=== PATIENT | female | born 1965 | race Caucasian/White ===

== ENCOUNTER → 2016-09-23 | Outpatient (CLI) | payer BC ==
[~2016-09-23] MED LIST: ALLEGRA180 MG PO; AMARYL4 MG PO; ASPIRIN LO-DOSE81 MG PO; CALCIUM 600 +1 EACH PO; CIPRO500 MG PO; COZAAR100 MG PO; FLOVENT 220 M220 MCG INH; GINSENG100 MG PO; GLUCOPHAGE1000 MG PO; HYZAAR 100-251 EACH PO; K-TAB ER20 MEQ PO; LASIX20 MG PO; LEVEMIR FL100 UNIT/1 SUB-Q; LIPITOR40 MG PO; MUCINEX600 MG PO; NEXIUM40 MG PO; NORCO 5-325 TA1 EACH PO; NYSTATIN100000 UNI PO; OSCAL + D500 MG PO; PROVENTIL OR V6.7 GM INH; REVLIMID10 MG PO; THERAGRAN-M1 TAB PO; TYLENOL EXTRA500 MG PO; ZYRTEC10 MG PO
== END | disposition disaster alternative care site (69) ==
LOC: GRAD 14:36
DX: R10.9 Unspecified abdominal pain (principal); K80.20 Calculus of gallbladder without cholecystitis without obstruction; D18.03 Hemangioma of intra-abdominal structures

== ENCOUNTER → 2016-09-26 | Day surgery (SDC) | payer BC ==
[~2016-09-26] VITALS: Ht 165.1 cm; Wt 75.0 kg
== END | disposition disaster alternative care site (69) ==
LOC: GPOC 09-25 16:00 → GEND 07:23 → GSIP 07:30 → GPOC 07:30 → GEND 07:30 → GOPP 07:30 → GEND 08:30 → GPOC 16:00
PROC: 0DB68ZX Excision of Stomach, Via Natural or Artificial Opening Endoscopic, Diagnostic (ICD-10-PCS; principal; 2016-09-26)
PROC: 0DB98ZX Excision of Duodenum, Via Natural or Artificial Opening Endoscopic, Diagnostic (ICD-10-PCS; 2016-09-26)
PROC: 0D758ZZ Dilation of Esophagus, Via Natural or Artificial Opening Endoscopic (ICD-10-PCS; 2016-09-26)
DX: B37.81 Candidal esophagitis (principal); R13.10 Dysphagia, unspecified; K29.70 Gastritis, unspecified, without bleeding; K31.89 Other diseases of stomach and duodenum; K44.9 Diaphragmatic hernia without obstruction or gangrene; F17.210 Nicotine dependence, cigarettes, uncomplicated; Z91.040 Latex allergy status; Z79.84 Long term (current) use of oral hypoglycemic drugs; Z79.899 Other long term (current) drug therapy; Z98.890 Other specified postprocedural states
CPT/HCPCS: C1726; J2001; J7030